=== PATIENT | female | born 1990 | race American Indian/Alaskan Native ===

== ENCOUNTER 2016-03-14 13:18 | Emergency (ER) | payer SELFPAY ==
[2016-03-14 13:51] VITALS: BP 135/78
--- NOTE | 2016-03-14 15:09 | Emergency Department Report ---
Chief Complaint: Abdominal Pain Stated Complaint: ABD PAIN Time Seen by Provider: 03/14/16 15:06 - HPI History of Present Illness: 26 y/o female complain abdominal pain x 3 days .no vaginal discharge .pt denies any nausea .pt complain of vomiting x 1 today and 2x on yesterday . - ROS Review of Systems: per HPI - Exam Vital Signs: Vital Signs 03/14/16 13:48 Temperature 97.4 F L Pulse Rate 84 Respiratory 18 Rate Blood Pressure 135/78 O2 Sat by Pulse 100 Oximetry Physical Exam: GENERAL: The patient is well-developed and well-nourished. Patient is in NAD. HENT: Normocephalic. Atraumatic. Patient has moist mucous membranes. Throat: No erythema, swelling or exudates. EYES: Extraocular motions are intact, PERRL NECK: Supple. No meningitic signs are noted. There is no adenopathy noted. CHEST/LUNGS: Clear to auscultation bilaterally. No wheezing, rales or rhonchi noted. There is no respiratory distress noted. HEART/CARDIOVASCULAR: Regular rate and rhythm. Normal S1 S2. No murmurs, rubs , clicks, or gallops. ABDOMEN: Abdomen is soft, nontender.. Bowel sounds normoactive. There is no abdominal distention. Negative rebound tenderness. : Deferred. SKIN: There is no rash. There is no edema. There is no diaphoresis. NEURO: The patient is A&Ox3. The patient has no focal neurologic deficits. MUSCULOSKELETAL: There is no tenderness or deformity. There is no limitation range of motion. PSYCH: Pt has appropriate mood and affect. MSE screening note: Focused history and physical exam performed. Due to findings the following was ordered: ED Disposition for MSE Condition: Stable Instructions: Abdominal Pain (ED)
[2016-03-14 15:37] LABS: Basophils % (Auto) 0.4 % (0.0-1.8); Eosinophils % (Auto) 0.3 % (0.0-4.3); Hemoglobin 11.4 gm/dl (10.1-14.3); Mean Corpuscular HGB Conc 32 % (30-34); Mean Corpuscular Volume 80 fl (79-97); Platelet Count 315 K/mm3 (140-440); Red Blood Count 4.39 M/mm3 (3.65-5.03); Red Cell Distribution Width 14.9 % (13.2-15.2); White Blood Count 9.2 K/mm3 (4.5-11.0)
[2016-03-14 15:40] LABS: Mean Corpuscular Hemoglobin 26 pg (28-32)
[2016-03-14 16:07] LABS: Anion Gap 18 mmol/L; BUN/Creatinine Ratio 13.33; Blood Urea Nitrogen 8 mg/dL (7-17); Calcium 8.3 mg/dL (8.4-10.2); Carbon Dioxide 22 mmol/L (22-30); Chloride 101.5 mmol/L (98-107); Glucose 93 mg/dL (65-100); Potassium 4.1 mmol/L (3.6-5.0); Sodium 137 mmol/L (137-145)
--- NOTE | 2016-03-15 14:41 | ED Elopement Review ---
ED Pt Elopement review - Results review Lab results: Laboratory Tests 03/14/16 03/14/16 03/14/16 15:25 15:25 15:25 WBC 9.2 RBC 4.39 Hgb 11.4 Hct 35.0 MCV 80 MCH 26 L MCHC 32 RDW 14.9 Plt Count 315 Lymph % (Auto) 31.3 [place] % (Auto) 8.3 H Eos % (Auto) 0.3 Baso % (Auto) 0.4 Lymph # 2.9 [place] # 0.8 Eos # 0.0 Baso # 0.0 Seg Neutrophils % 59.7 Seg Neutrophils # 5.5 Sodium 137 Potassium 4.1 Chloride 101.5 Carbon Dioxide 22 Anion Gap 18 BUN 8 Creatinine 0.6 L Estimated GFR > 60 BUN/Creatinine Ratio 13.33 Glucose 93 Calcium 8.3 L HCG, Quant 09501 H - Call Back decision Pt Call Back Decision: No action required (patient is but her abdominal exam was benign when done by the nurse practitioner.)
== END 2016-03-14 20:45 | disposition left against medical advice (07) ==
LOC: ED 13:18
DX: R10.9 Unspecified abdominal pain (principal); Z53.21 Procedure and treatment not carried out due to patient leaving prior to being seen by health care provider
CPT/HCPCS: 36415; 80048; 84702; 85025

== ENCOUNTER 2019-02-25 22:14 | Emergency (ER) | payer SELFPAY ==
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
[2019-02-26] MEDS ORDERED: KETOROLAC 30 MG/1 ML INJ IM ONE (00:22)
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
[2019-02-26 01:02] VITALS: BP 124/87
== END 2019-02-26 00:45 | disposition home or self-care (01) ==
LOC: ED 22:14
DX: M54.2 Cervicalgia (principal); M54.9 Dorsalgia, unspecified; V49.49XA Driver injured in collision with other motor vehicles in traffic accident, initial encounter; Y93.89 Activity, other specified; Y92.410 Unspecified street and highway as the place of occurrence of the external cause; Y99.8 Other external cause status
CPT/HCPCS: 72040; 72100; J1885; 96372

== ENCOUNTER 2020-01-11 04:30 | Emergency (ER) | payer MEDICAID ==
[2020-01-11 04:42] VITALS: BP 132/80
[2020-01-11] MEDS ORDERED: SODIUM CHLORIDE 0.9% 1000 ML 1,000 ML IV ONE (05:21)
--- NOTE | 2020-01-11 05:54 | Cat Scan Report ---
CT head without contrast INDICATION : Headache with dizziness. TECHNIQUE: Axial imaging performed from the skull apex through the skull base without the use of con trast. All CT examinations performed at this facility utilize dose modulation, iterative reconstruct ion or weight-based dosing, when appropriate, to reduce radiation dose to as low as reasonably achiev able. COMPARISON: None FINDINGS: No acute intracranial hemorrhage or parenchymal abnormality. Ventricles are normal in si ze and appear symmetric. Soft tissues including the orbits appear normal. No acute osseous abnorm ality. Sinuses and mastoid air cells are clear. IMPRESSION: No acute abnormality. Signer Name: Germán Oleary MD Signed: 01/11/2020 5:49 AM Workstation Name: [id number]
--- NOTE | 2020-01-11 05:57 | XRay Report ---
CHEST 1 VIEW INDICATION / CLINICAL INFORMATION: dizziness. FINDINGS: SUPPORT DEVICES: None. HEART / MEDIASTINUM: No significant abnormality. LUNGS / PLEURA: No significant pulmonary or pleural abnormality. No pneumothorax. ADDITIONAL FINDINGS: No significant additional findings. IMPRESSION: 1. No acute findings. Signer Name: Germán Oleary MD Signed: 01/11/2020 5:52 AM Workstation Name: [id number]
[2020-01-11 06:24] LABS: Basophils % (Auto) 0.4 % (0.0-1.8); Eosinophils # (Auto) 0.1 K/mm3 (0.0-0.4); Eosinophils % (Auto) 0.7 % (0.0-4.3); Hematocrit 34.2 % (30.3-42.9); Lymphocytes # (Auto) 3.2 K/mm3 (1.2-5.4); Lymphocytes % (Auto) 39.7 % (13.4-35.0); Mean Corpuscular HGB Conc 32 % (30-34); Mean Corpuscular Volume 78 fl (79-97); Monocytes # (Auto) 0.7 K/mm3 (0.0-0.8); Monocytes % (Auto) 8.8 % (0.0-7.3); Platelet Count 319 K/mm3 (140-440); Red Blood Count 4.37 M/mm3 (3.65-5.03); Red Cell Distribution Width 15.9 % (13.2-15.2)
--- NOTE | 2020-01-11 06:29 | Emergency Department Report ---
ED General Adult HPI - General Chief complaint: Dizziness Stated complaint: DIZZINESS, BLURRED VISION Source: patient Mode of arrival: Ambulatory Limitations: No Limitations - History of Present Illness Initial comments: Patient is a 29-year-old -[place] Islander female with no past medical history presents to the ED with complaint of acute onset persistent frontal sinus pressure and headache, nausea, dizziness and lightheadedness with generalized weakness and fatigue for the last 1 week, worse in the last 2 days. Patient states that the symptoms have worsened especially in the last 2 days such that she felt lightheaded and almost had a syncopal episode. Patient states that the headache has worsened especially in the last 12 hours she has not been able to sleep. Patient took 2 extra strength Tylenol prior to arrival in the ED and now states that the headache is resolved. Patient denies syncope, chest pain, shortness of breath, fever, chills, cough, abdominal pain, palpitations, seizures, change in vision, back pain, dysuria, urinary frequency and urgency or nausea and vomiting and diarrhea. MD Complaint: frontal headache; lightheadedness; dizziness -: Sudden, days(s) (2) Location: head, face Radiation: non-radiation Severity scale (0 -10): 8 Quality: aching, sharp, constant Consistency: constant Improves with: medication Worsens with: none Associated Symptoms: denies other symptoms, headaches. denies: confusion, chest pain, cough, diaphoresis, fever/chills, loss of appetite, malaise, nausea/vomiting, rash, seizure, shortness of breath, syncope, weakness, other Treatments Prior to Arrival: NSAID - Related Data Previous Rx's Medication Instructions Recorded Last Taken Type Fluconazole (Nf) [Diflucan] 150 mg PO ONCE #1 tablet 08/11/14 Unknown Rx Doxycycline Hyclate [Doxycycline 100 mg PO Q12HR #28 cap 06/08/15 Unknown Rx Hyclate TAB] metroNIDAZOLE [Flagyl] 500 mg PO Q12HR #28 tab 06/08/15 Unknown Rx traMADoL [Ultram 50 MG tab] 50 mg PO Q6HR PRN #15 tablet 06/08/15 Unknown Rx Methocarbamol [Robaxin] 500 mg PO TID PRN #21 tablet 02/26/19 Unknown Rx Amoxicillin [Trimox CAP] 500 mg PO Q8H #30 capsule 01/11/20 Unknown Rx Butalb/Acetamin/Caff 50-325-40 1 tab PO Q6HR PRN #12 tab 01/11/20 Unknown Rx [Fioricet 50-325-40] Ibuprofen [Motrin 800 MG tab] 800 mg PO Q8HR PRN #30 tablet 01/11/20 Unknown Rx Meclizine HCl 25 mg PO Q8H PRN #30 tablet 01/11/20 Unknown Rx Allergies Allergy/AdvReac Type Severity Reaction Status Date / Time No Known Allergies Allergy Verified 08/11/14 07:19 ED Review of Systems ROS: Stated complaint: DIZZINESS, BLURRED VISION Other details as noted in HPI Constitutional: malaise, weakness. denies: chills, fever Eyes: denies: eye pain, eye discharge, vision change ENT: denies: ear pain, throat pain Respiratory: denies: cough, shortness of breath, wheezing Cardiovascular: denies: chest pain, palpitations Endocrine: no symptoms reported Gastrointestinal: denies: abdominal pain, nausea, vomiting, diarrhea Genitourinary: denies: urgency, dysuria, discharge Musculoskeletal: denies: back pain, joint swelling, arthralgia Skin: denies: rash, lesions Neurological: headache. denies: weakness, paresthesias Psychiatric: denies: anxiety, depression Hematological/Lymphatic: denies: easy bleeding, easy bruising ED Past Medical Hx - Past Medical History Previous Medical History?: No Additional medical history: Vaginal delivery x 3 - Surgical History Past Surgical History?: No - Social History Smoking Status: Never Smoker Substance Use Type: Alcohol - Medications Home Medications: Home Medications Medication Instructions Recorded Confirmed Last Taken Type Fluconazole (Nf) [Diflucan] 150 mg PO ONCE #1 tablet 08/11/14 Unknown Rx Doxycycline Hyclate [Doxycycline 100 mg PO Q12HR #28 cap 06/08/15 Unknown Rx Hyclate TAB] metroNIDAZOLE [Flagyl] 500 mg PO Q12HR #28 tab 06/08/15 Unknown Rx traMADoL [Ultram 50 MG tab] 50 mg PO Q6HR PRN #15 tablet 06/08/15 Unknown Rx Methocarbamol [Robaxin] 500 mg PO TID PRN #21 tablet 02/26/19 Unknown Rx Amoxicillin [Trimox CAP] 500 mg PO Q8H #30 capsule 01/11/20 Unknown Rx Butalb/Acetamin/Caff 50-325-40 1 tab PO Q6HR PRN #12 tab 01/11/20 Unknown Rx [Fioricet 50-325-40] Ibuprofen [Motrin 800 MG tab] 800 mg PO Q8HR PRN #30 tablet 01/11/20 Unknown Rx Meclizine HCl 25 mg PO Q8H PRN #30 tablet 01/11/20 Unknown Rx ED Physical Exam - General Limitations: No Limitations General appearance: alert, in no apparent distress - Head Head exam: Present: atraumatic, normocephalic, normal inspection - Eye Eye exam: Present: normal appearance, PERRL, EOMI Pupils: Present: normal accommodation - ENT ENT exam: Present: normal exam, normal orophraynx, mucous membranes moist, TM's normal bilaterally, normal external ear exam - Neck Neck exam: Present: normal inspection, full ROM. Absent: tenderness - Respiratory Respiratory exam: Present: normal lung sounds bilaterally. Absent: respiratory distress, wheezes, rales, stridor, chest wall tenderness, accessory muscle use, decreased breath sounds, prolonged expiratory - Cardiovascular Cardiovascular Exam: Present: regular rate, normal rhythm, normal heart sounds. Absent: systolic murmur, diastolic murmur, rubs, gallop - GI/Abdominal GI/Abdominal exam: Present: soft, normal bowel sounds. Absent: tenderness, guarding, rebound, hyperactive bowel sounds, hypoactive bowel sounds, organomegaly - Extremities Exam Extremities exam: Present: normal inspection, full ROM, normal capillary refill - Back Exam Back exam: Present: normal inspection, full ROM. Absent: tenderness, CVA tenderness (R), CVA tenderness (L), muscle spasm, vertebral tenderness - Neurological Exam Neurological exam: Present: alert, oriented X3, CN II-XII intact, normal gait, reflexes normal - Psychiatric Psychiatric exam: Present: normal affect, normal mood - Skin Skin exam: Present: warm, dry, intact, normal color. Absent: rash ED Course Vital Signs 01/11/20 04:39 Temperature 97.8 F Pulse Rate 79 Respiratory 20 Rate Blood Pressure 132/80 O2 Sat by Pulse 100 Oximetry ED Medical Decision Making - Lab Data Result diagrams: 01/11/20 05:53 01/11/20 05:53 - Radiology Data Radiology results: report reviewed, image reviewed Findings [facility] [address] [place] [address] Cat Scan Report Signed Patient: KELVIN NJ R#: [id number] : 1990 Acct:[id number] Age/Sex: 29 / F ADM Date: 01/11/20 Loc: ED Attending Dr: Ordering Physician: ELLIE AUGUSTIN Date of Service: 01/11/20 Procedure(s): CT head/brain wo con Accession Number(s): [id number] cc: ELLIE AUGUSTIN CT head without contrast INDICATION : Headache with dizziness. TECHNIQUE: Axial imaging performed from the skull apex through the skull base without the use of contrast. All CT examinations performed at this facility utilize dose modulation, iterative reconstruction or weight-based dosing, when appropriate, to reduce radiation dose to as low as reasonably achievable. COMPARISON: None FINDINGS: No acute intracranial hemorrhage or parenchymal abnormality. Ventricles are normal in size and appear symmetric. Soft tissues including the orbits appear normal. No acute osseous abnormality. Sinuses and mastoid air cells are clear. IMPRESSION: No acute abnormality. Signer Name: Germán Oleary MD Signed: 01/11/2020 5:49 AM Workstation Name: [id number] Transcribed By: BC Dictated By: Germán Oleary MD Electronically Authenticated By: Germán Oleary MD Signed Date/Time: 01/11/20548 DD/ 6 TD/TT: Findings [facility] [address] [place] [address] XRay Report Signed Patient: KELVIN NJ R#: [id number] : 1990 Acct:[id number] Age/Sex: 29 / F ADM Date: 01/11/20 Loc: ED Attending Dr: Ordering Physician: ELLIE AUGUSTIN Date of Service: 01/11/20 Procedure(s): XR chest 1V ap Accession Number(s): [id number] cc: ELLIE AUGUSTIN Fluoro Time In Minutes: CHEST 1 VIEW INDICATION / CLINICAL INFORMATION: dizziness. FINDINGS: SUPPORT DEVICES: None. HEART / MEDIASTINUM: No significant abnormality. LUNGS / PLEURA: No significant pulmonary or pleural abnormality. No pneumothorax. ADDITIONAL FINDINGS: No significant additional findings. IMPRESSION: 1. No acute findings. Signer Name: Germán Oleary MD Signed: 01/11/2020 5:52 AM Workstation Name: [id number] Transcribed By: BC Dictated By: Germán Oleary MD Electronically Authenticated By: Germán Oleary MD Signed Date/Time: 01/11/20551 DD/ 1 TD/TT: - Medical Decision Making This is a 29-year-old -[place] female with no past medical history presents to the ED with complaint of acute onset persistent frontal sinus pressure and headache, nausea, dizziness and lightheadedness with generalized weakness and fatigue for the last 1 week, worse in the last 2 days. Patient states that the symptoms have worsened especially in the last 2 days such that she felt lightheaded and almost had a syncopal episode. Patient states that the headache has worsened especially in the last 12 hours she has not been able to sleep. Patient took 2 extra strength Tylenol prior to arrival in the ED and now states that the headache is resolved. In the ED, patient is alert and oriented x3 and is not in any distress. In the ED patient was treated with normal saline 1 L IV bolus x1. Chest x-ray shows no acute cardiopulmonary abnormalities in the 90s. The head CT scan without contrast showed no acute intracranial abnormalities or hemorrhage. Lab test results were reviewed and are all nonactionable. The EKG is pending. Patient care was transferred to Mr. Louis Castellanos NP at shift change at [address]700 hrs[address] Mr[address] Jasmin GUERIN shall review the EKG report and reevaluate patient and disposition the patient accordingly. - Differential Diagnosis sinusitis; migraine headache; sinus headache; ACS; PE; Dehydration Critical care attestation.: If time is entered above; I have spent that time in minutes in the direct care of this critically ill patient, excluding procedure time. ED Disposition Clinical Impression: Dizziness after extension of neck, Acute non-recurrent frontal sinusitis Migraine headache without aura Qualifiers: Status migrainosus presence: without status migrainosus Intractability: not intractable Qualified Code(s): G43.009 - Migraine without aura, not intractable, without status migrainosus Disposition: TO HOME OR SELFCARE Is pt being admited?: No Does the pt Need Aspirin: No Condition: Stable Instructions: Migraine Headache, [id number], Sinusitis, Adult, [id number], Dizziness, [id number] Additional Instructions: Take medication with food, drink plenty of fluids and follow-up with your primary care physician in 7 to 10 days for reevaluation. Return to the ED immediately if symptoms get worse. Prescriptions: Butalb/Acetamin/Caff 50-325-40 [Fioricet 50-325-40] 1 tab PO Q6HR PRN #12 tab PRN Reason: Headache Meclizine HCl 25 mg PO Q8H PRN #30 tablet PRN Reason: DIZZINESS Ibuprofen [Motrin 800 MG tab] 800 mg PO Q8HR PRN #30 tablet PRN Reason: Pain , Severe (7-10) Amoxicillin [Trimox CAP] 500 mg PO Q8H #30 capsule Referrals: [facility] [Provider Group] - 3-5 Days Forms: Work/School Release Form(ED) Time of Disposition: 06:51 Print Language: BHUTANESE
[2020-01-11 06:35] LABS: Alanine Aminotransferase 44 units/L (7-56); Albumin 3.7 g/dL (3.9-5); Blood Urea Nitrogen 7 mg/dL (7-17); Calcium 8.7 mg/dL (8.4-10.2); Hemolysis Index 1
[2020-01-11 06:36] LABS: BUN/Creatinine Ratio 12
== END 2020-01-11 07:19 | disposition home or self-care (01) ==
LOC: ED 04:30
DX: J01.10 Acute frontal sinusitis, unspecified (principal); G43.909 Migraine, unspecified, not intractable, without status migrainosus; R42 Dizziness and giddiness; Z98.890 Other specified postprocedural states; Z79.1 Long term (current) use of non-steroidal anti-inflammatories (NSAID); Z79.2 Long term (current) use of antibiotics; Z79.899 Other long term (current) drug therapy
CPT/HCPCS: 36415; 70450; 71045; 80053; 84484; 84703; 85025; 93005; 96360; 99284; J7030

== ENCOUNTER 2020-12-18 21:46 | Emergency (ER) | payer MEDICAID ==
[2020-12-18 22:41] VITALS: BP 128/77
--- NOTE | 2020-12-18 23:12 | Emergency Department Report ---
- General Chief Complaint: Upper Respiratory Infection Stated Complaint: MOUTH DRY, LIGHT HEADED, FACE PAIN PUI?: Yes Time Seen by Provider: 12/18/20 22:45 Source: patient Mode of arrival: Ambulatory Limitations: No Limitations - History of Present Illness Initial Comments: 30-year-old female who denies any significant past medical history presents to the ER today with complaints of URI symptoms. Patient states that she has been having lots of sinus pressure, nasal congestion, clear rhinorrhea, sinus headache, feeling dizzy and lightheaded for the past 3 days. She also states that she feels like she is dehydrated as she has been having a dry mouth, and she states her urine is very yellow. She has not had any vomiting or diarrhea, but she does admit she has been taking [id number] NyQuil and Benadryl, and she has also been going to the gym lately and has been sweating. She denies any chest pain, shortness of breath, abdominal pain, fever or chills. She denies any apparent ill contacts. She states that she did take a COVID-19 test today and was negative. She has not gotten any of the COVID-19 vaccines. MD Complaint: rhinorrhea, nasal congestion, sinus pain, other -: days(s) (3) - Related Data Previous Rx's Medication Instructions Recorded Last Taken Type Amoxicillin [Trimox CAP] 500 mg PO Q8H #30 capsule 12/19/20 Unknown Rx Fluticasone [Flonase] 2 spray NS QDAY #1 bottle 12/19/20 Unknown Rx Ibuprofen [Motrin] 600 mg PO Q8H PRN #30 tablet 12/19/20 Unknown Rx Pseudoephedrine ER [Sudafed 12 Hr] 120 mg PO BID #20 tablet.er 12/19/20 Unknown Rx Allergies Allergy/AdvReac Type Severity Reaction Status Date / Time No Known Allergies Allergy Verified 08/11/14 07:19 ED Review of Systems ROS: Stated complaint: MOUTH DRY, LIGHT HEADED, FACE PAIN Other details as noted in HPI Comment: All other systems reviewed and negative Constitutional: denies: chills, fever ENT: congestion, other (Rhinorrhea). denies: ear pain, throat pain, dental pain, hearing loss, epistaxis Respiratory: denies: cough, shortness of breath, SOB with exertion, SOB at rest, wheezing Cardiovascular: denies: chest pain, palpitations Gastrointestinal: denies: abdominal pain, nausea, diarrhea Genitourinary: denies: urgency, dysuria, frequency, hematuria, discharge, abnormal menses, dyspareunia Skin: denies: rash, lesions Neurological: headache, vertigo, other (Lightheaded) Psychiatric: denies: anxiety, depression, auditory hallucinations, visual hallucinations, homicidal thoughts, suicidal thoughts Hematological/Lymphatic: denies: easy bleeding, easy bruising ED Past Medical Hx - Past Medical History Previous Medical History?: No Hx Hypertension: No Hx CVA: No Hx Heart Attack/AMI: No Hx Congestive Heart Failure: No Hx Diabetes: No Hx Deep Vein Thrombosis: No Hx Pulmonary Embolism: No Hx GERD: No Hx Liver Disease: No Hx Renal Disease: No Hx of Cancer: No Hx Sickle Cell Disease: No Hx Arthritis: No Hx Headaches / Migraines: No Hx Seizures: No Hx Kidney Stones: No Hx Psychiatric Treatment: No Hx Asthma: No Hx COPD: No Hx Tuberculosis: No Hx Dementia: No Hx HIV: No Additional medical history: Vaginal delivery x 3 - Surgical History Past Surgical History?: No Hx Coronary Stent: No Hx Open Heart Surgery: No Hx Pacemaker: No Hx Internal Defibrillator: No Hx Cholecystectomy: No Hx Appendectomy: No Hx Breast Surgery: No - Social History Smoking Status: Never Smoker - Medications Home Medications: Home Medications Medication Instructions Recorded Confirmed Last Taken Type Amoxicillin [Trimox CAP] 500 mg PO Q8H #30 capsule 12/19/20 Unknown Rx Fluticasone [Flonase] 2 spray NS QDAY #1 bottle 12/19/20 Unknown Rx Ibuprofen [Motrin] 600 mg PO Q8H PRN #30 tablet 12/19/20 Unknown Rx Pseudoephedrine ER [Sudafed 12 Hr] 120 mg PO BID #20 tablet.er 12/19/20 Unknown Rx ED Physical Exam - General Limitations: No Limitations General appearance: alert, in no apparent distress - Head Head exam: Present: atraumatic, normocephalic, normal inspection - Eye Eye exam: Present: normal appearance, PERRL, EOMI Pupils: Present: normal accommodation - ENT ENT exam: Present: normal orophraynx, mucous membranes moist - Expanded ENT Exam Expanded TM/Canal exam: Effusion: Right TM, Left TM Mouth exam: Present: normal external inspection Teeth exam: Present: normal inspection Throat exam: Positive: normal inspection - Neck Neck exam: Present: normal inspection, full ROM. Absent: meningismus - Respiratory Respiratory exam: Present: normal lung sounds bilaterally. Absent: respiratory distress, wheezes, rales, rhonchi - Cardiovascular Cardiovascular Exam: Present: regular rate, normal rhythm, normal heart sounds - GI/Abdominal GI/Abdominal exam: Present: soft. Absent: distended, tenderness, guarding, rebound, rigid - Neurological Exam Neurological exam: Present: alert, oriented X3, CN II-XII intact, normal gait - Psychiatric Psychiatric exam: Present: normal affect, normal mood - Skin Skin exam: Present: intact ED Course Vital Signs 12/18/20 22:40 Temperature 97.7 F Pulse Rate 98 H Respiratory 16 Rate Blood Pressure 128/77 [Left] O2 Sat by Pulse 98 Oximetry Critical care attestation.: If time is entered above; I have spent that time in minutes in the direct care of this critically ill patient, excluding procedure time. ED Disposition Clinical Impression: Sinusitis, Eustachian tube dysfunction Disposition: HOME / SELF CARE / HOMELESS Is pt being admited?: No Does the pt Need Aspirin: No Condition: Stable Instructions: Sinusitis, Adult, [id number], Eustachian Tube Dysfunction Additional Instructions: I recommend using the Flonase, and taking the Sudafed as prescribed. Recommend taking ibuprofen as prescribed to help with pain. Recommend that you do not start the amoxicillin until Wednesday or Wednesday if your sinus symptoms persist. I recommend that you stop taking any Benadryl or [id number] NyQuil as this can be a cause of your dry mouth. Increase your water intake. Continue taking a multivitamin daily. Return to the ER if your symptoms changes or worsens in any way. Prescriptions: Fluticasone [Flonase] 2 spray NS QDAY #1 bottle Ibuprofen [Motrin] 600 mg PO Q8H PRN #30 tablet PRN Reason: Pain Pseudoephedrine ER [Sudafed 12 Hr] 120 mg PO BID #20 tablet.er Amoxicillin [Trimox CAP] 500 mg PO Q8H #30 capsule Referrals: TOMASA CHRISTIANSEN MD [Primary Care Provider] - 3-5 Days Forms: Work/School Release Form(ED) Time of Disposition: 00:16 Print Language: MALAY
[2020-12-19 00:06] LABS: Bilirubin,Urine NEG (Negative); Blood,Urine NEG (Negative); Color,Urine Yellow (Yellow); Mucus,Urine FEW /HPF; Protein,Urine <15 mg/dL mg/dL (Negative); WBC,Urine < 1.0 /HPF (0.0-6.0)
[2020-12-19 00:07] LABS: HCG Qualitative,Urine Negative (Negative)
== END 2020-12-19 00:50 | disposition home or self-care (01) ==
LOC: ED 21:46
DX: J32.9 Chronic sinusitis, unspecified (principal); H69.90 Unspecified Eustachian tube disorder, unspecified ear
CPT/HCPCS: 81001; 81025; 99283

== ENCOUNTER 2021-09-10 18:43 | Emergency (ER) | payer MEDICAID | END 2021-09-10 20:00 | disposition left against medical advice (07) | LOC: ED 18:43 | DX: R42 Dizziness and giddiness (principal); R52 Pain, unspecified; Z53.21 Procedure and treatment not carried out due to patient leaving prior to being seen by health care provider ==

== ENCOUNTER 2021-09-11 10:06 | Emergency (ER) | payer MEDICAID ==
[2021-09-11 11:23] LABS: HCG Qualitative,Urine Negative (Negative)
[2021-09-11 11:37] LABS: Bilirubin,Urine Negative (Negative); Blood,Urine Negative (Negative); Color,Urine Yellow (Yellow); PH,Urine 7.5 (5.0-7.0); Protein,Urine <15 mg/dL mg/dL (Negative); Urobilinogen,Urine < 2.0 mg/dL (<2.0)
[2021-09-11 11:45] LABS: Mucus,Urine FEW /HPF
[2021-09-11 12:05] LABS: Basophils % (Auto) 0.4 % (0.0-1.8); Eosinophils % (Auto) 0.5 % (0.0-4.3); Hematocrit 35.2 % (30.3-42.9); Hemoglobin 10.9 gm/dl (10.1-14.3); Lymphocytes # (Auto) 2.8 K/mm3 (1.2-5.4); Lymphocytes % (Auto) 41.8 % (13.4-35.0); Mean Corpuscular HGB Conc 31 % (30-34); Mean Corpuscular Volume 76 fl (79-97); Monocytes # (Auto) 0.5 K/mm3 (0.0-0.8); Monocytes % (Auto) 7.6 % (0.0-7.3); Platelet Count 396 K/mm3 (140-440); Red Blood Count 4.66 M/mm3 (3.65-5.03); Red Cell Distribution Width 17.2 % (13.2-15.2)
--- NOTE | 2021-09-11 19:23 | Emergency Department Report ---
ED General Adult HPI - General Chief complaint: Dizziness Stated complaint: DIZZY/LIGHT HEADDED Time Seen by Provider: 09/11/21 16:41 Source: patient Mode of arrival: Ambulatory Limitations: No Limitations - History of Present Illness Initial comments: 31-year-old female with no significant past medical history reports having intermittent dizziness for about 2 days. Denies nausea no vomiting no diarrhea, no shortness of breath, no chest pain. Denies weakness. Patient does report that she really has not been eating much food food just junk food and not meals. Patient also reports decrease in water intake. Patient reports she does have a little hungry no other acute signs or symptoms reported at this time. - Related Data Previous Rx's Medication Instructions Recorded Last Taken Type Amoxicillin [Trimox CAP] 500 mg PO Q8H #30 capsule 12/19/20 Unknown Rx Fluticasone [Flonase] 2 spray NS QDAY #1 bottle 12/19/20 Unknown Rx Ibuprofen [Motrin] 600 mg PO Q8H PRN #30 tablet 12/19/20 Unknown Rx Pseudoephedrine ER [Sudafed 12 Hr] 120 mg PO BID #20 tablet.er 12/19/20 Unknown Rx Amoxicillin/K Clav Tab [Augmentin 1 tab PO Q12HR 7 Days #14 tab 09/11/21 Unknown Rx 875 mg] Allergies Allergy/AdvReac Type Severity Reaction Status Date / Time No Known Allergies Allergy Verified 08/11/14 07:19 ED Review of Systems ROS: Stated complaint: DIZZY/LIGHT HEADDED Other details as noted in HPI Comment: All other systems reviewed and negative Neurological: other (Dizziness). denies: headache, weakness, numbness ED Past Medical Hx - Past Medical History Previous Medical History?: No Hx Hypertension: No Hx CVA: No Hx Heart Attack/AMI: No Hx Congestive Heart Failure: No Hx Diabetes: No Hx Deep Vein Thrombosis: No Hx Pulmonary Embolism: No Hx GERD: No Hx Liver Disease: No Hx Renal Disease: No Hx Sickle Cell Disease: No Hx Arthritis: No Hx Headaches / Migraines: No Hx Seizures: No Hx Kidney Stones: No Hx Psychiatric Treatment: No Hx Asthma: No Hx COPD: No Hx Tuberculosis: No Hx Dementia: No Hx HIV: No Additional medical history: Vaginal delivery x 3 - Surgical History Hx Coronary Stent: No Hx Open Heart Surgery: No Hx Pacemaker: No Hx Internal Defibrillator: No Hx Cholecystectomy: No Hx Appendectomy: No Hx Breast Surgery: No - Social History Smoking Status: Never Smoker - Medications Home Medications: Home Medications Medication Instructions Recorded Confirmed Last Taken Type Amoxicillin [Trimox CAP] 500 mg PO Q8H #30 capsule 12/19/20 Unknown Rx Fluticasone [Flonase] 2 spray NS QDAY #1 bottle 12/19/20 Unknown Rx Ibuprofen [Motrin] 600 mg PO Q8H PRN #30 tablet 12/19/20 Unknown Rx Pseudoephedrine ER [Sudafed 12 Hr] 120 mg PO BID #20 tablet.er 12/19/20 Unknown Rx Amoxicillin/K Clav Tab [Augmentin 1 tab PO Q12HR 7 Days #14 tab 09/11/21 Un known Rx 875 mg] ED Physical Exam - General Limitations: No Limitations General appearance: alert, in no apparent distress - Head Head exam: Present: atraumatic, normocephalic - Eye Eye exam: Present: normal appearance - ENT ENT exam: Present: mucous membranes moist - Neck Neck exam: Present: normal inspection - Respiratory Respiratory exam: Present: normal lung sounds bilaterally. Absent: respiratory distress - Cardiovascular Cardiovascular Exam: Present: regular rate, normal rhythm. Absent: systolic murmur, diastolic murmur, rubs, gallop - GI/Abdominal GI/Abdominal exam: Present: soft, normal bowel sounds. Absent: distended, tenderness - Extremities Exam Extremities exam: Present: normal inspection - Back Exam Back exam: Present: normal inspection - Neurological Exam Neurological exam: Present: alert, altered, oriented X3, normal gait, motor sensory deficit - Psychiatric Psychiatric exam: Present: normal affect, normal mood - Skin Skin exam: Present: warm, dry, intact, normal color. Absent: rash ED Course Vital Signs 09/11/21 09/11/21 10:40 20:17 Temperature 98.2 F Pulse Rate 80 83 Respiratory 16 14 Rate Blood Pressure 131/68 126/64 [Left] O2 Sat by Pulse 97 100 Oximetry ED Medical Decision Making - Lab Data Result diagrams: 09/11/21 11:06 09/11/21 17:24 - Medical Decision Making 31-year-old female with no significant past medical history reports having intermittent dizziness for about 2 days. Denies nausea no vomiting no diarrhea, no shortness of breath, no chest pain. Denies weakness. Patient does report that she really has not been eating much food food just junk food and not meals. Patient also reports decrease in water intake. Patient reports she does have a little hungry no other acute signs or symptoms reported at this time.. On physical exam no acute findings noted. Patient is neurologically intact. Patient alert and oriented x4. GCS is 15. Normal gait. No nausea no vomiting noted. Labs ordered. Labs are unremarkable. Patient informed to increase her intake of water and to cut back on junk food and to eat more nutritious foods and whole meals. Patient informed that dizziness is likely due to her nutritional intake of just junk food only with no intake of nutritional foods as well as intake of adequate water. Patient verbalizes understanding and agrees with plan of care. Patient informed that if symptoms are to get worse to report back to the ER. Labs 09/11/21 09/11/21 09/11/21 10:37 11:06 17:24 WBC 6.8 RBC 4.66 Hgb 10.9 Hct 35.2 MCV 76 L MCH 23 L MCHC 31 RDW 17.2 H Plt Count 396 Lymph % (Auto) 41.8 H [place] % (Auto) 7.6 H Eos % (Auto) 0.5 Baso % (Auto) 0.4 Lymph # (Auto) 2.8 [place] # (Auto) 0.5 Eos # (Auto) 0.0 Baso # (Auto) 0.0 Seg Neutrophils % 49.7 Seg Neutrophils # 3.4 Sodium 138 Potassium 4.2 Chloride 104.4 Carbon Dioxide 24 Anion Gap 14 BUN 7 Creatinine 0.6 Estimated GFR > 60 BUN/Creatinine Ratio 12 Glucose 112 H POC Glucose 117 H Calcium 9.1 Urine Color Urine Turbidity Urine pH Ur Specific [place] Urine Protein Urine Glucose (UA) Urine Ketones Urine Blood Urine Nitrite Ur Reducing Substances Urine Bilirubin Urine Ictotest Urine Urobilinogen Ur Leukocyte Esterase Urine WBC (Auto) Urine RBC (Auto) U Epithel Cells (Auto) Urine Mucus Urine HCG, Qual 09/11/21 Unknown WBC RBC Hgb Hct MCV MCH MCHC RDW Plt Count Lymph % (Auto) [place] % (Auto) Eos % (Auto) Baso % (Auto) Lymph # (Auto) [place] # (Auto) Eos # (Auto) Baso # (Auto) Seg Neutrophils % Seg Neutrophils # Sodium Potassium Chloride Carbon Dioxide Anion Gap BUN Creatinine Estimated GFR BUN/Creatinine Ratio Glucose POC Glucose Calcium Urine Color Yellow Urine Turbidity Clear Urine pH 7.5 H Ur Specific [place] 1.010 Urine Protein <15 mg/dl Urine Glucose (UA) Negative Urine Ketones Negative Urine Blood Negative Urine Nitrite Negative Ur Reducing Substances Not Reportable Urine Bilirubin Negative Urine Ictotest Not Reportable Urine Urobilinogen < 2.0 Ur Leukocyte Esterase Negative Urine WBC (Auto) 1.0 Urine RBC (Auto) 10.0 U Epithel Cells (Auto) 6.0 Urine Mucus Few Urine HCG, Qual Negative Critical care attestation.: If time is entered above; I have spent that time in minutes in the direct care of this critically ill patient, excluding procedure time. ED Disposition Clinical Impression: Dizziness, Pain, dental Disposition: 01 HOME / SELF CARE / HOMELESS Is pt being admited?: No Condition: Stable Instructions: Dizziness, [id number], Dizziness, Acute Pain, Adult Prescriptions: Amoxicillin/K Clav Tab [Augmentin 875 mg] 1 tab PO Q12HR 7 Days #14 tab Referrals: PRIMARY CARE [Primary Care Provider] - 3-5 Days Time of Disposition: 19:47
[2021-09-11 19:30] LABS: Blood Urea Nitrogen 7 mg/dL (7-17); Calcium 9.1 mg/dL (8.4-10.2); Hemolysis Index 8
[2021-09-11 19:31] LABS: BUN/Creatinine Ratio 12
[2021-09-11 20:17] VITALS: BP 126/64
--- NOTE | 2021-09-12 17:47 | Electrocardiograph Report ---
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
== END 2021-09-11 20:17 | disposition home or self-care (01) ==
LOC: ED 10:06
DX: R42 Dizziness and giddiness (principal); K08.89 Other specified disorders of teeth and supporting structures; Z79.899 Other long term (current) drug therapy
CPT/HCPCS: 36415; 80048; 81001; 81025; 82962; 85025; 93005; 99283